=== PATIENT | female | born 1955 | race Caucasian/White ===

== ENCOUNTER → 2016-12-29 | Day surgery (SDC) | payer MEDICARE, SELFPAY | END | disposition home or self-care (01) | LOC: FAS 09:04 | DX: S83.241A Other tear of medial meniscus, current injury, right knee, initial encounter (principal); M25.861 Other specified joint disorders, right knee; M17.11 Unilateral primary osteoarthritis, right knee; Z91.040 Latex allergy status; Z88.5 Allergy status to narcotic agent; Z88.8 Allergy status to other drugs, medicaments and biological substances | CPT/HCPCS: 71010; 93005; J1100; J1885; J2405; J2704; J2765; J3010 ==

== ENCOUNTER 2022-01-06 11:15 | Emergency (ER) | payer MEDICARE, OTHER ==
[~2022-01-06 11:15] MED LIST: LIDOCAINE30 G1 TOP; NORCO 5-325 TA1 EAC1 PO
[2022-01-06] MEDS ORDERED: MEDROL 4MG DOSEP4 MG PO (14:40)
[2022-01-06] MEDS ORDERED: NORCO 5-325 TA1 EACH PO (14:40)
== END 2022-01-06 15:03 | disposition home or self-care (01) ==
LOC: FER 11:15
DX: S39.012A Strain of muscle, fascia and tendon of lower back, initial encounter (principal); G89.29 Other chronic pain; I13.0 Hypertensive heart and chronic kidney disease with heart failure and stage 1 through stage 4 chronic kidney disease, or unspecified chronic kidney disease; N18.9 Chronic kidney disease, unspecified; I50.9 Heart failure, unspecified; Z88.5 Allergy status to narcotic agent; Z88.6 Allergy status to analgesic agent; Z88.8 Allergy status to other drugs, medicaments and biological substances
CPT/HCPCS: 99283; J1100